=== PATIENT | female | born 1985 | race Caucasian/White ===

== ENCOUNTER 2024-12-28 16:10 | Outpatient (AMB) | payer OTHER, SELFPAY ==
--- NOTE | 2024-12-28 16:14 | MHC.OFFVIS ---
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 She was under stress due to multiple reasons but overall she was doing ok and stable. She would feel the stress in her neck and shoulder areas. She is presenting with excessive sleepiness and a lack of motivation. She reports that she is sleeping more than usual, often falling asleep around 7:30 PM and waking up early due to her daughter's school bus schedule. Despite getting enough hours of sleep, she still feels unmotivated and less active throughout the day. The patient is currently prescribed clonazepam, venlafaxine, and quetiapine, while also undergoing a methadone taper. Additionally, the patient's work schedule changed slightly, possibly influencing her routine. Her methadone dose has included adjustments like alternating daily intake due to the low dosage, while her clonazepam use is recommended to be reduced to only evening doses to address sleepiness. [facility] Medical History (Updated 12/28/24 @ 16:17 by David Adamson MD) Back pain Anxiety disorder Depression Tourettes syndrome Review of Systems Const Details: - Neurological: Reports excessive sleepiness and lack of motivation. - General: Reports adequate sleep duration but still feels unmotivated. - Medications: Current regimen includes clonazepam, venlafaxine, quetiapine, and methadone. Physical Exam Neuro Other: Mental Status: Alert and oriented to person, place, and time. Normal attention. Normal spontaneous speech, fluency, and comprehension. No obvious issues with mood and memory. Affect is appropriate. Cranial Nerves: CN II: Visual mchugh full to confrontation, visual acuity intact. CN III, IV, : Pupils equal, round, reactive to light and accommodation. Extraocular movements are normal. CN V: Facial sensation is normal. CN VII: Facial movements symmetrical. CN VIII: Hearing intact to bedside conversation is normal. CN IX, X: Palate elevates symmetrically. CN XI: Shoulder shrug and head turn symmetrical. CN XII: Tongue midline without atrophy or fasciculations. Motor: Bulk and tone normal in all extremities. No significant muscle weakness in arms and legs. No drift. Reflexes: Deep tendon reflexes 2+ and symmetric. Plantar response down-going bilaterally. Coordination: [id number] and [id number] testing normal. No dysmetria. Gait and Station: No obvious gait abnormality. No ataxia or instability. Extrapyramidal: Full facial expressions and blinking. No rigidity. Movements are appropriate with no tremor or abnormality. Speech: Normal; no dysarthria or tremor. Assessment & Plan Assessment & Plan (1) Tourettes syndrome: Comment: NCV/EMG LE 09/30/16 Normal motor and sensory nerve conduction velocities in the lower extremities. MRI LS spine at in Apr 2016: L5/S1 DJD and midline disc with mod b/l foraminal stenosis. Code(s): F95.2 - Tourette's disorder Category: Medical Plan Impression: Tourette syndrome with anxiety Recommendations: Venlafaxine extended release 150 mg daily Clonazepam 0.5 mg a day Quetiapine 25 mg twice a day During the consultation, I addressed the patient's concerns regarding excessive sleepiness and lack of motivation. The likely contributing factor of clonazepam sedation was discussed, with a plan to modify dosing to once at nighttime to mitigate drowsiness. We reviewed the patient's ongoing treatment for depression with venlafaxine and quetiapine, emphasizing the importance of monitoring changes in mood and motivation. Methadone taper was evaluated, and adherence was discussed given the alternate dosing strategy. I encouraged the patient to reach out if her condition changes or if she requires further assistance during the tapering phase. Wintertime mood changes were highlighted, and patient education focused on recognizing symptoms requiring medical attention. Coding Level of Care Code Est Pt Level 4 (88607) Diagnoses Tourettes syndrome F95.2
--- OUTSIDE RECORDS SUMMARY | 2024-12-28 18:54 | XMS_ITS ---
Author Name [facility] Organization Unknown Care Team Organization Name Specialty Phone Email Start Date End Da nando [facility] 02/24/20222023
== END 2024-12-28 16:24 | disposition home or self-care (01) ==
LOC: HO.HSM 16:10
PROVIDERS: PCP Family Medicine; Referring Provider Internal Medicine; Visit Provider Psychiatry & Neurology Neurology
DX: F95.2 Tourette's disorder (principal)
CPT/HCPCS: 99214

== ENCOUNTER → 2024-12-28 16:10 | Outpatient (BNVA) | payer OTHER, SELFPAY | PROVIDERS: PCP Family Medicine; Referring Provider Internal Medicine; Visit Provider Psychiatry & Neurology Neurology | DX: F95.2 Tourette's disorder (principal); F41.9 Anxiety disorder, unspecified; F19.20 Other psychoactive substance dependence, uncomplicated | CPT/HCPCS: 99212 ==